=== PATIENT | male | born 1970 | race Caucasian/White ===

== ENCOUNTER 2024-03-04 07:08 | Day surgery (SDC) | payer OTHER ==
[~2024-03-04] VITALS: Ht 172.7 cm; Wt 71.7 kg
[2024-03-04] MEDS ORDERED: fentaNYL citrate 0.05 MG/ML VIAL ONE (08:07)
[2024-03-04] MEDS ORDERED: MIDAZOLAM 5 MG/5 ML VIAL ONE ×2 (08:08→08:13)
[2024-03-04] MEDS ORDERED: LIDOCAINE 2% 100 MG/5 ML UJET TP ONE (08:08)
[2024-03-04] MEDS: MIDAZOLAM 2 MG/2 ML VIAL IVP ONE (08:25)
[2024-03-04] MEDS: fentaNYL citrate 0.05 MG/ML VIAL IVP ONE (08:26)
[2024-03-04] MEDS: LIDOCAINE 2% 100 MG/5 ML UJET TP ONE (08:49)
== END 2024-03-04 10:15 | disposition home or self-care (01) ==
LOC: MOR 07:08 → MMU 07:09 → MOR 10:15
PROVIDERS: ATTEND Internal Medicine Gastroenterology
DX: R10.84 Generalized abdominal pain (principal); R11.0 Nausea; K64.8 Other hemorrhoids; K57.30 Diverticulosis of large intestine without perforation or abscess without bleeding; K21.9 Gastro-esophageal reflux disease without esophagitis; E78.00 Pure hypercholesterolemia, unspecified; Z79.899 Other long term (current) drug therapy; Z98.890 Other specified postprocedural states
CPT/HCPCS: 43235; 45378; J2250; J3010